=== PATIENT | male | born 1955 ===

== ENCOUNTER 2017-12-05 15:32 | Emergency (ER) | payer OTHER ==
[2017-12-05 15:44] VITALS: RESP 18
--- NOTE | 2017-12-05 16:55 | ED PDOC ---
HPI: Chest Pain Time Seen by Provider: 12/05/17 15:54 Chief Complaint (Nursing): Palpitations Chief Complaint (Provider): Dizzy History Per: Patient Additional Complaint(s): 62 yo male, PMH of HTN, presents to ED C/O vertigo and headache x 3 days now. Contrary to triage note, Pt denies any chest pain, palpitations or SOB Past Medical History Reviewed: Nursing Documentation, Vital Signs Vital Signs: Last Vital Signs Temp 97.6 F 12/05/17 15:43 Pulse 60 12/05/17 15:43 Resp 18 12/05/17 15:43 BP 125/77 12/05/17 15:43 Pulse Ox 100 12/05/17 19:17 - Medical History PMH: No Chronic Diseases - Family History Family History: States: No Known Family Hx - Living Arrangements Living Arrangements: With Family - Social History Current smoker - smoking cessation education provided: No - Home Medications Home Medications: Ambulatory Orders Medication Instructions Recorded Meclizine [Meclizine*] 25 mg PO Q6 #30 tab 12/05/17 Methylprednisolone [Medrol Dose 4 mg PO DAILY #21 mg 12/05/17 Pack (21 tabs)] - Allergies Allergies/Adverse Reactions: Allergies Allergy/AdvReac Type Severity Reaction Status Date / Time No Known Allergies Allergy Verified 12/05/17 15:42 - Laboratory Results Result Diagrams: 12/05/17 17:44 12/05/17 17:44 - ECG O2 Sat by Pulse Oximetry: 100 Medical Decision Making Medical Decision Making: CBC, COMP and UA resulted WNL UDS (-) CXR: NAD, as read by PALenkaC IMPRESSION: No evidence of recent infarct or intracranial hemorrhage mild age related changes. Pt medicated with Antivert and reports feeling greatly improved on re-eval. Stable for discharge home at this time Disposition - Clinical Impression Clinical Impression: Vertigo - Patient ED Disposition Is Patient to be Admitted: No - Disposition Disposition: Routine/Home Disposition Time: 19:25 Condition: STABLE Prescriptions: Meclizine [Meclizine*] 25 mg PO Q6 #30 tab Methylprednisolone [Medrol Dose Pack (21 tabs)] 4 mg PO DAILY #21 mg Instructions: Vertigo (a Type of Dizziness) Forms: [employer] (Sinhala)
--- NOTE | 2017-12-05 17:21 | RAD ---
Date of service: 12/05/2017 PROCEDURE: CHEST RADIOGRAPH, 1 VIEW HISTORY: dizzy COMPARISON: 12/24/2015 FINDINGS: LUNGS: Clear. PLEURA: No pneumothorax or pleural fluid seen. CARDIOVASCULAR: Normal. OSSEOUS STRUCTURES: No significant abnormalities. VISUALIZED UPPER ABDOMEN: Normal. OTHER FINDINGS: None. IMPRESSION: No active disease.
--- NOTE | 2017-12-05 17:22 | CT ---
Date of service: 12/05/2017 PROCEDURE: CT HEAD WITHOUT CONTRAST. HISTORY: dizzy, pain COMPARISON: None available. TECHNIQUE: Axial computed tomography images were obtained through the head/brain without intravenous contrast. Radiation dose: Total exam DLP = eight hundred seventy-two mGy-cm. This CT exam was performed using one or more of the following dose reduction techniques: Automated exposure control, adjustment of the mA and/or kV according to patient size, and/or use of iterative reconstruction technique. FINDINGS: HEMORRHAGE: No intracranial hemorrhage. BRAIN: No mass effect or edema. Mild age related cerebral atrophy is noted. In addition there are some mild areas of decreased density in the white matter tracts most suggestive of microvascular small-vessel change. No cortical effacement is seen. Posterior fossa is unremarkable. Retro-orbital regions are within normal limits. No extra-axial collections are identified. VENTRICLES: Unremarkable. No hydrocephalus. CALVARIUM: Unremarkable. PARANASAL SINUSES: Mild mucosal changes are seen in the sinuses. Mastoid air cells are well-aerated. MASTOID AIR CELLS: Unremarkable as visualized. No inflammatory changes. OTHER FINDINGS: None. IMPRESSION: No evidence of recent infarct or intracranial hemorrhage mild age related changes.
[2017-12-05 17:49] LABS: BASO % 0.5 % (0.0-2.0); EOS # 0.2 K/uL (0.0-0.7); EOS % 3.5 % (0.0-4.0); HEMOGLOBIN 14.6 g/dL (12.0-18.0); LYMPH # 2.1 K/uL (1.0-4.3); LYMPH % 35.1 % (20.0-40.0); MEAN CORPUSCULAR HEMOGLOBIN 30.5 pg (27.0-31.0); MEAN CORPUSCULAR HGB CONC 33.1 g/dL (33.0-37.0); MEAN PLATELET VOLUME 10.7 fl (7.2-11.7); MONO # 0.3 K/uL (0.0-0.8); MONO % 5.5 % (0.0-10.0); NEUT # 3.3 K/uL (1.8-7.0); NEUT % 55.4 % (50.0-75.0); NRBC % 0.1 % (0.0-0.0); RBC 4.81 Mil/uL (4.40-5.90); RED CELL DISTRIBUTION WIDTH 14.2 % (11.5-14.5)
[2017-12-05 18:04] LABS: ALB/GLOB RATIO 1.4 (1.0-2.1); ALBUMIN 4.3 g/dL (3.5-5.0); ALT/SGPT 37 U/L (21-72); AST/SGOT 23 U/L (17-59); BLOOD UREA NITROGEN 13 mg/dl (9-20); CALCIUM 9.4 mg/dL (8.4-10.2); GFR NON-AFRICAN AMERICAN > 60
[2017-12-05 18:07] LABS: URINE BACTERIA RARE (<OCC); URINE BILIRUBIN NEGATIVE (NEGATIVE); URINE BLOOD NEGATIVE (NEGATIVE); URINE CLARITY CLEAR (Clear); URINE COLOR YELLOW (YELLOW); URINE GLUCOSE (UA) NEG (Normal); URINE LEUKOCYTE ESTERASE NEG Leu/uL (Negative); URINE PROTEIN NEGATIVE (NEGATIVE); URINE UROBILINOGEN 0.2-1.0 mg/dL (0.2-1.0)
[2017-12-05 18:15] LABS: BARBITURATES, UR NEGATIVE (NEGATIVE); BENZODIAZEPINES, UR NEGATIVE (NEGATIVE); OPIATES, UR NEGATIVE (NEGATIVE); PHENCYCLIDINE, UR NEGATIVE (NEGATIVE)
[2017-12-05 20:35] VITALS: BP 130/80; PULSE 57; TEMP 97.9; O2SAT 98
--- NOTE | 2017-12-06 06:41 | CARD ---
APPROVED REPORT Date of service: 12/05/2017 EKG Measurement Heart [id number] <Conclusion> Normal sinus rhythm Normal ECG
== END 2017-12-05 20:35 | disposition home or self-care (01) ==
LOC: H.ER 15:32
DX: R42 Dizziness and giddiness (principal); R00.2 Palpitations; I10 Essential (primary) hypertension